=== PATIENT | male | born 1960 | race Caucasian/White ===

== ENCOUNTER → 2021-01-03 | Outpatient (CLI) | payer OTHER ==
[~2021-01-03] MED LIST: CIAL5TAB PO; PARO20TA3 PO
--- NOTE | 2021-01-03 11:48 | REP ---
INDICATION: PAIN. COMPARISON: None. TECHNIQUE: Four views FINDINGS: Are is no acute fracture or destructive osseous lesions. Degenerative changes seen involving the 1st carpometacarpal joint with asymmetric joint space narrowing and osteophytosis. IMPRESSION: Chronic changes as described above. <Electronically signed by Florentino Longoria > 01/03/21 [id number]
--- NOTE | 2021-01-03 11:58 | REP ---
INDICATION: PAIN. COMPARISON: Comparison left shoulder radiographs are from May 22, 2016.. TECHNIQUE: Six views, bilateral shoulder series. FINDINGS: Three views right shoulder demonstrate periarticular soft tissue calcification adjacent to the proximal humeral head consistent with calcific tendinitis or bursitis. There is also some glenohumeral spurring inferiorly. AC joint narrowing is seen. No erosive changes seen. No malalignment. Three views of the left shoulder demonstrate normal alignment of the glenohumeral and acromioclavicular joints. There is mild inferior glenohumeral spurring consistent with early osteoarthritis. Subcortical cyst formation is seen in the proximal humerus. IMPRESSION: Bilateral glenohumeral spurring consistent with osteoarthritis. Periarticular soft tissue calcification on the right. Mild AC joint narrowing on the right. <Electronically signed by Rico Parker > 01/03/21 [id number]
== END ==
LOC: M WUC 10:22
PROVIDERS: ATTEND Family Medicine
DX: M25.511 Pain in right shoulder (principal); M25.532 Pain in left wrist

== ENCOUNTER → 2021-08-02 | Outpatient (CLI) | payer OTHER ==
[~2021-08-02] MED LIST changes: +OMEP40CA5 PO
== END ==
LOC: M LABSMTC 09:20
PROVIDERS: ATTEND Anesthesiology
DX: Z01.812 Encounter for preprocedural laboratory examination (principal); Z20.822 Contact with and (suspected) exposure to COVID-19

== ENCOUNTER → 2021-11-01 | Outpatient (CLI) | payer OTHER | LOC: M LABSMTC 09:10 | PROVIDERS: ATTEND Anesthesiology | DX: Z01.812 Encounter for preprocedural laboratory examination (principal); Z20.822 Contact with and (suspected) exposure to COVID-19 ==

== ENCOUNTER 2021-11-06 06:38 | Day surgery (SDC) | payer OTHER ==
[~2021-11-06] VITALS: Ht 165.1 cm; Wt 79.8 kg
[~2021-11-06 06:38] MED LIST changes: +NS 1,000 ML IV ONE
[2021-11-06] MEDS ORDERED: LIDOCAINE 2% 100MG/5ML SDV (FOR ANES.) As Ordered ONE (06:45)
[2021-11-06] MEDS ORDERED: propofoL 200 MG/20 ML VIAL As Ordered ONE (06:45)
[2021-11-06 08:42] VITALS: BP 142/94
== END 2021-11-06 08:53 | disposition home or self-care (01) ==
LOC: M OPP 06:38
PROVIDERS: ATTEND Internal Medicine Gastroenterology
DX: Z12.11 Encounter for screening for malignant neoplasm of colon (principal); K63.5 Polyp of colon; K64.0 First degree hemorrhoids; R12 Heartburn; Z86.19 Personal history of other infectious and parasitic diseases; Z79.899 Other long term (current) drug therapy; F17.210 Nicotine dependence, cigarettes, uncomplicated

== ENCOUNTER → 2025-05-16 | Outpatient (CLI) | payer OTHER ==
[~2025-05-16] MED LIST changes: +E-Z-GAS II EFFERVESCENT PACKET (SODIUM BICARB./CITRIC ACID/SIMETHICONE) As Ordered ONE; +E-Z-HD 98% w/w 340 GM SUSP BTL As Ordered ONE; +E-Z-PAQUE 96% w/w SUSP 176 GM BTL As Ordered ONE; -NS 1,000 ML IV ONE
== END ==
LOC: M RAD 09:04
PROVIDERS: ATTEND Family Medicine
DX: K21.9 Gastro-esophageal reflux disease without esophagitis (principal); R93.3 Abnormal findings on diagnostic imaging of other parts of digestive tract